=== PATIENT | male | born 1955 | race Caucasian/White ===

== ENCOUNTER 2016-09-16 07:52 | Day surgery (SDC) | payer OTHER ==
[2016-09-15 16:46] VITALS: BMI 24.8
[2016-09-16] MEDS ORDERED: PROPOFOL 20 ML ONE ×2 (08:09)
[2016-09-16] MEDS ORDERED: LIDOCAINE HCL/PF 2% SDV 5ML VIAL ONE (08:10)
[2016-09-16 09:16] VITALS: TEMP 98
[2016-09-16 10:31] VITALS: BP 104/60; PULSE 65
--- NOTE | 2016-09-17 12:04 | PATH ---
Surgical Pathology Report Patient Name: AVIS WOODS [facility]. Rec. #: [id number] /Age/Gender: 1955 (Age: 60) / M Account: [id number] Location: [facility]-ENDOSCOPY Taken: 09/16/2016 Received: 09/16/2016 Reported: 09/17/2016 Physicians: Juan Miguel Kohler M.D. Specimen(s) Received A: RIGHT COLON B: SPLENIC FLEXURE Clinical History History of polyps Polyps Final Diagnosis A. COLON, RIGHT, POLYP, POLYPECTOMY: FRAGMENTS OF TUBULAR ADENOMA. B. COLON, SPLENIC FLEXURE, POLYP, POLYPECTOMY: FRAGMENTS OF TUBULAR ADENOMA. Electronically Signed [place] Rawls M.D. Gross Description A. Received in formalin, labeled "right colon" are 3 stoll, polypoid portions of soft tissue ranging from 0.3-1.0 cm in greatest dimension. The specimens are submitted in toto in one cassette. B. Received in formalin, labeled "splenic flexure" is a stoll, polypoid portion of soft tissue measuring 1.0 x 0.6 x 0.4 cm the specimen is bisected and entirely submitted in one cassette. /09/16/2016 saudi09/16/2016
== END 2016-09-16 10:40 | disposition home or self-care (01) ==
LOC: FASU-ENDO 07:52
PROVIDERS: ATTEND Internal Medicine Gastroenterology
PROC: 0DBK8ZX Excision of Ascending Colon, Via Natural or Artificial Opening Endoscopic, Diagnostic (ICD-10-PCS; principal; 2016-09-16 09:31)
PROC: 0DBL8ZX Excision of Transverse Colon, Via Natural or Artificial Opening Endoscopic, Diagnostic (ICD-10-PCS; 2016-09-16 09:31)
DX: Z86.010 Personal history of colon polyps (principal); D12.2 Benign neoplasm of ascending colon; D12.3 Benign neoplasm of transverse colon; K57.30 Diverticulosis of large intestine without perforation or abscess without bleeding; Z98.0 Intestinal bypass and anastomosis status
CPT/HCPCS: 88305-TC